=== PATIENT | male | born 1955 | race Caucasian/White ===

== ENCOUNTER 2021-06-04 16:04 | Emergency (ER) | payer OTHER ==
[~2021-06-04] VITALS: Ht 180.3 cm; Wt 77.1 kg
[2021-06-04] MEDS ORDERED: MEDROL DOSEPAK4 MG PO (18:58)
== END 2021-06-04 19:09 | disposition home or self-care (01) ==
LOC: ED 16:04
DX: M54.16 Radiculopathy, lumbar region (principal)